=== PATIENT | female | born 1995 | race Caucasian/White ===

== ENCOUNTER 2016-12-18 21:18 | Emergency (ER) | payer MEDICAID ==
[2016-12-19 00:02] VITALS: BP 98/58
== END 2016-12-19 00:02 | disposition home or self-care (01) ==
LOC: ED 21:18
DX: M79.602 Pain in left arm (principal); M79.1 Myalgia

== ENCOUNTER 2017-03-04 19:28 | Emergency (ER) | payer MEDICAID ==
[2017-03-04 20:53] VITALS: BP 123/65
== END 2017-03-04 20:55 | disposition home or self-care (01) ==
LOC: ED 19:28
DX: H01.006 Unspecified blepharitis left eye, unspecified eyelid (principal)